=== PATIENT | female | born 1965 | race Caucasian/White ===

== ENCOUNTER 2016-08-13 08:08 | Day surgery (SDC) | payer OTHER ==
[2016-08-13] VITALS (9 sets, daily range): BP systolic 95–131; BP diastolic 58–74; PULSE 66–82; RESP 12–16; TEMP 97–97.9; O2SAT 97–100; Ht 161.3 cm; Wt 92.3 kg
[~2016-08-13] VITALS: Ht 161.3 cm; Wt 92.3 kg
[~2016-08-13 08:08] MED LIST: ASPI1TAB7 PO; CALC-191 PO; FERR-67 PO; IBUP-1547 PO; LIDOCAINE 1% (10mg/ml) 2ml SDV INJ ONE; LR 1,000 ML IV SCH; NAPR220T PO; RIZA10TA24 PO; TRAM50TA4 PO; VENL-68 PO
--- OUTSIDE RECORDS SUMMARY | 2016-08-13 08:12 | XMS REPORT | Continuity of Care Document ---
Author Author [facility] Organization [facility] Address Unknown Phone Unavailable Allergies Medications Problems Procedures Results Encounters ACCT No. Visit Date/Time Discharge Status Pt. Type Provider Facility Loc./Unit Complaint [id number] 07/06/2013 15:18:00 07/06/2013 23 :59:59 CLS Outpatient [id number] 05/22/2013 13:48:00 05/22/2013 23 :59:59 CLS Outpatient
--- OUTSIDE RECORDS SUMMARY | 2016-08-13 08:12 | XMS REPORT | Continuity of Care Document ---
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 Phone Katia Glass PP Unavailable Payers Payer name Insurance type Covered republican ID Authorization(s) Unknown Problems Condition Effective Dates (start - stop) Clinical Status Headache - *Chronic Menopausal or female climacteric states - *Chronic Irregular menses - *Chronic Epistaxis - *Acute Encounter for routine gynecological examination - *Routine Obesity - *Chronic Right foot pain - *Acute Migraine - *Chronic Headache - *Acute Right ankle pain - *Acute 311 - DEPRESSIVE DISORDER NEC - MIGRNE UNSP WO NTRC MGRN - ESOPHAGEAL REFLUX - Pain of left calf - *Acute Family History Family Member Diagnosis Age At Onset Status Mother (Alive) Cancer - lung Yes Mother (Unknown) Cancer - breast Yes Maternal grandmother (Unknown) Cancer - breast Yes Maternal grandfather (Unknown) Heart disease Yes Mother (Alive) Cancer - ovarian Yes Maternal grandmother (Unknown) Alzheimer's Disease Yes Social History Social History Element Description Quantity alcohol Allergies, Adverse Reactions, Alerts Substance Reaction Severity Status Unknown Medications Medication Instructions Dosage Effective Dates (start - stop) Status Toprol XL 25 mg tablet,extended release take 1 tablet (25MG) by oral route every morning 25 MG - Active Claritin 10 mg tablet take 1 tablet (10MG) by oral route every day 10 MG - Active ibuprofen 800 mg tablet take 1 tablet (800MG) by oral route 3 times every day with food 800 MG - Active Imitrex 50 mg tablet 1 PO PRN , AUGUST REPEAT IN 2HR PRN - Active gabapentin 100 mg capsule Take 1 capsule by mouth at onset of headache. - Active Effexor XR 37.5 mg capsule,extended release TAKE 1 PO Q HS - Active Fioricet 50 mg-325 mg-40 mg tablet take 1 tablet by oral route daily at onset of Headache - Active Ultram 50 mg tablet take 1 tablet (50MG) by oral route every 6 - 8 hours as needed 50 MG - Active Immunizations Vaccine Date Status Comments Unknown Results Test Name Date and Time Measure Units Reference Range Abnormal Flag Comments Unknown Vital Signs Date / Time: Height Weight Pulse Rate Blood Pressure Temperature /13:52:00 63.00 in 191.80 lbs 76 /min 128/88 mm[Hg] Procedures Procedure Date Unknown Encounters Encounter Location Date Patient Visit [address] Patient Visit [address] Patient Visit [address] Patient Visit [address] Patient Visit [address] Patient Visit [address] Patient Visit [address] Patient Visit [address] Patient Visit [address] Patient Visit Conversion Patient Visit [address] Advance Directives Directive Effective Date Unknown
--- OUTSIDE RECORDS SUMMARY | 2016-08-13 08:12 | XMS REPORT | Continuity of Care Document ---
Author Author [facility] Organization [facility] Address Unknown Phone Unavailable Support Name Relationship Address Phone HAKAN HARTLEY MD Caregiver [address] [place] [address] [place] [address] Unavailable JAMEL HARRELL APRN Caregiver [address] [place] [address] Unavailable KATHY QURESHI Next Of Kin [address] [place] [address] Insurance Providers Guarantor Juan Flores Address [address] [place] [address] Email [email or web address] Payer [employer] Policy Number [id number] Subscriber's Name Juan Flores Relationship 18 Self Group Number [id number] Advance Directives Directive Response Recorded Date/Time Ordered Resuscitation Status Full Code 11/06/15 2:33pm DPOA for Healthcare Only No 11/07/15 6:31am Problems No problem information available. Medications Current Home Medications Medication Dose Units Route Directions Days Qty Instructions Start Date Aspirin/Acetaminophen/Caffeine (Excedrin Migraine Caplet) 1 Each Tablet 2-4 Tab Oral Every 8 Hours as needed for Pain 11/07/15 Calcium Carbonate/Vitamin D3 (Calcium + Vitamin D Tablet) 1 Each Tablet 1 Tab Oral Daily 11/06/15 Ferrous Sulfate (Iron Supplement) 325 Mg Tablet 1 Tab Oral Daily 30 Tablet 11/06/15 Ibuprofen 800 Mg Tablet 1 Tab Oral Every 6 Hours as needed for Pain 11/06/15 Losartan Potassium 50 Mg Tablet 50 Mg Oral Daily 11/06/15 Naproxen Sodium (Naproxen 220MG) 220 Mg Tablet 220 Mg Oral As Needed 11/06/15 Rizatriptan Benzoate (Maxalt) 10 Mg Tablet 1 Tab Oral As Needed 9 Tablet 11/06/15 Sumatriptan Succinate (Imitrex) 50 Mg Tablet 1 Tab Oral As Needed 9 Tablet 11/06/15 Venlafaxine Hcl (Venlafaxine Hcl Er) 75 Mg Cap.er.24h 75 Mg Oral Daily 11/06/15 Social History Social History Problem Response Recorded Date/Time Onset Date Status Chewing Tobacco Status No 11/07/2015 6:21am Not Applicable Not Applicable Hx Substance Use No 11/07/2015 6:21am Not Applicable Not Applicable Hx Alcohol Use Y SOCIALLY 11/07/2015 6:21am Not Applicable Not Applicable Has the pt used tobacco in the last 12 months No 11/07/2015 6:21am Not Applicable Not Applicable Query Response Start Date Stop Date Smoking Status Former smoker Hospital Discharge Instructions No hospital discharge instructions. Plan of Care Discharge Date 11/07/15 8:51am Prescriptions See Medication Section Functional Status Query Response Date Recorded Ability to complete ADL's impeded by No change November 07, 2015 6:31am Allergies, Adverse Reactions, Alerts Allergen Type Severity Reaction Status Last Updated Lisinopril Allergy Mild COUGH Active 11/06/15 Immunizations Query Response on File Recorded Date/Time Hx Influenza Vaccination Y JAN 2015 11/07/15 6:21am Hx Pneumococcal Vaccination No 11/07/15 6:21am Hx Influenza Vaccination Y JAN 2015 11/07/15 6:21am Vital Signs Acute Vital Signs Vital Response Date/Time Temperature (Fahrenheit) 97.5 deg F (96.8 - 99.1) 11/07/2015 8:07am Temperature (Calculated Celsius) 36.19373 degrees C (36.0 - 37.3) 11/07/2015 8:07am Temperature Source Temporal 11/07/2015 8:07am Pulse Rate (adult) 78 bpm (60 - 100) 11/07/2015 8:40am Respiratory Rate 17 breaths/min (10 - 20) 11/07/2015 8:40am O2 Sat by Pulse Oximetry 98 % (90 - 100) 11/07/2015 8:40am Oxygen Delivery Method Room Air 11/07/2015 8:40am Blood Pressure 105/61 mm Hg 11/07/2015 8:40am Blood Pressure Source Automatic Cuff 11/07/2015 8:40am Height (Feet) 5 feet 11/07/2015 6:12am Height (Inches) 4.00 inches 11/07/2015 6:12am Weight (Kilograms) 89.400 kg 11/07/2015 6:12am Body Mass Index (BMI) 33.8 11/07/2015 6:12am Results No known relevant diagnostic tests, laboratory data and/or discharge summary. Procedures Procedure Status Date Provider(s) Colonoscopy Completed 11/07/15 HAKAN HARTLEY MD Encounters Encounter Location Arrival/Admit Date Discharge/Depart Date Attending Provider Departed [facility] 11/07/15 5:56am 11/07/15 8: 51am HAKAN HARTLEY MD
--- OUTSIDE RECORDS SUMMARY | 2016-08-13 08:12 | XMS REPORT | Continuity of Care Document ---
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 Phone Maria LuisaKatia PP Unavailable Payers Payer name Insurance type Covered constitution party ID Authorization(s) Unknown Problems Condition Effective Dates (start - stop) Clinical Status Gastrocnemius muscle strain - *Acute Right foot pain - *Acute Headache - *Chronic Menopausal or female climacteric states - *Chronic Irregular menses - *Chronic Epistaxis - *Acute Encounter for routine gynecological examination - *Routine Obesity - *Chronic Right ankle pain - *Acute 311 - DEPRESSIVE DISORDER NEC - MIGRNE UNSP WO NTRC MGRN - ESOPHAGEAL REFLUX - Migraine - *Chronic Headache - *Acute Pain of left calf - *Acute Family [...] Dosage Effective Dates (start - stop) Status naproxen 375 mg tablet take 1 tablet (375MG) by oral route 2 times every day with food 375 MG - Active [place] 5 mg-325 mg tablet take 1 tablet by oral route every 6 hours as needed for pain 0 - Active Claritin 10 mg tablet take 1 tablet (10MG) by oral route every day 10 MG - Active Imitrex 50 mg tablet 1 PO PRN , AUGUST REPEAT IN 2HR PRN - Active Effexor XR 37.5 mg capsule,extended release TAKE 1 PO Q HS - Active Ultram 50 mg tablet take 1 tablet (50MG) by oral route every 6 - 8 hours as needed 50 MG - Active Fioricet 50 mg-325 mg-40 mg tablet take 1 tablet by oral route daily at onset of Headache - Active Toprol XL 25 mg tablet,extended release take 1 tablet (25MG) by oral route every morning 25 MG - Active Immunizations Vaccine Date Status Comments Unknown Results Test Name Date and Time Measure Units Reference Range Abnormal Flag Comments Unknown Vital Signs Date / Time: Height Weight Pulse Rate Blood Pressure Temperature /15:23:00 63.00 in 190.60 lbs 130/90 mm[Hg] Procedures Procedure Date Unknown Encounters Encounter Location Date Patient Visit [address] Patient Visit [address] Patient Visit [address] Patient Visit [address] Patient [address] Patient [address] Patient [address] Patient Visit [address] Patient Visit [address] Patient Visit Conversion Patient Visit [address] Patient Visit [address] Advance Directives Directive Effective Date Unknown
[2016-08-13] MEDS ORDERED: OMEP40CA52 PO (08:50)
--- NOTE | 2016-08-13 09:18 | ANESPREOP ---
Anesthesia Record Date and Time DATE: 08/13/16 TIME: 09:16 Proposed Surgical Procedure EGD NPO since: 729 solid Allergies: Coded Allergies: lisinopril (Verified Allergy, Mild, COUGH, 08/13/16) Ht/Wt/BMI Height: 5 ' 3.50 " Weight: 92.300 kg BMI: 35.5 kg/m2 Vital Signs Date Time Temp Pulse Resp B/P Pulse Ox O2 Delivery O2 Flow Rate FiO2 08/13/16 08:28 97.9 80 15 131/74 99 Room Air Medications Inpatient Medications Current Medications Medications (Trade) Dose Ordered Sig/Juan Start Time Stop Time Status Last Admin Dose Admin Lactated Ringer's (Lactated Ringers) 1,000 ml @ 50 mls/hr Q20H 08/13/16 07:00 08/13/16 09:08 50 MLS/HR Aspirin/Acetaminophen/Caffeine (Excedrin Migraine Caplet) 1 Each Tablet, 2-4 TAB PO Q8H PRN for PAIN, (Reported) Last Taken: on 08/12/16 1500 Calcium Carbonate/Vitamin D3 (Calcium + Vitamin D Tablet) 1 Each Tablet, 1 TAB PO DAILY, (Reported) Last Taken: on 08/06/16 0700 Ferrous Sulfate (Iron Supplement) 325 Mg Tablet , 1 TAB PO DAILY, (Reported) Last Taken: on 08/12/16 0730 Ibuprofen (Ibuprofen) 800 Mg Tablet, 1 TAB PO Q6H PRN for PAIN, (Reported) Last Taken: on Unknown Date & Time Naproxen Sodium (Naproxen 220mg) 220 Mg Tablet, 220 MG PO PRN, (Reported) Last Taken: on Unknown Date & Time Omeprazole (Omeprazole) 40 Mg Capsule.dr , 1 CAP PO ACB, (Reported) Last Taken: on 08/13/16 0730 Rizatriptan Benzoate (Maxalt) 10 Mg Tablet, 1 TAB PO PRN, (Reported) Last Taken: on 08/12/16 1500 Tramadol HCl (Tramadol HCl) 50 Mg Tablet, 50 MG PO Q6HR, (Reported) Take 1 tablet, by mouth, every 6 hours. Last Taken: on 08/12/162099 Venlafaxine HCl (Venlafaxine HCl ER) 75 Mg Cap.er.24h, 75 MG PO DAILY, (Reported) Last Taken: on 08/12/16 1900 Currently on Beta Xochitl: No Medical/Surgical History Anesthesia PMH: Reports: *Hypertension, Obesity, Reflux (controlled) Smoking Status: Former smoker (quit age 18) Use Chewing Tobacco?: No Second Hand Exposure: No Substance Use Type: does not use Alcohol Intake: none HX of Last Menstrual Period: 2015 Past Surgical History Orthopedic Surgeries: Yes - LEFT AND RIGHT WRIST FXs Abdominal Surgeries: Genitourinary Surgeries: Yes - KIDNEY STONE REMOVED Cardiac Surgeries: Endocrine Surgeries: Reproductive Surgeries: Yes - D & C; LAP TUBAL Neurological Surgeries: Ear Surgeries: Nose Surgeries: Throat Surgeries: Other Surgeries: Yes - KIDNEY STONE REMOVED Anesthesia Adverse Reactions: FOUND none Family Hx of Anesthesia Advers: none Hx of Motion Sickness: No Pertinent Findings Test 08/13/16 08:25 Urine Test Negative (NEGATIVE) Physical Exam Respiratory: Bilat breath sounds equal, Lungs clear Cardiovascular: FOUND Regular rate, rhythm Airway Assessment Mallampati Score: III TMD: 2 Fingerbreadths Neck Extension: Fair Overall Assessment: May Be Diff Intubation (small mouth opening, mp 3, short tmd <3 fb) ASA: 2 Plan Anesthesia Plan: TIVA, GETA Discussion Discussed risks/options/alternatives of anesthesia and questions answered. Patient consents. Nursing pain assessment noted. Present: Family Member Attestation Statement Prior to the delivery of any anesthetic medication, I examined the patient, developed the plan, obtained the patient's consent and discussed the risk and benefits of the procedure with the patient/guardian. NEGRITO DALEY CRNA Aug 13, 2016 09:18
[2016-08-13] MEDS ORDERED: PROPOFOL 500mg 50 ML IV ONE (09:35)
[2016-08-13] MEDS ORDERED: LIDOCAINE VISCOUS 2% Oral Soln 15ml UD ONE (10:01)
[2016-08-13] MEDS ORDERED: BENZOCAINE 20% Top. Anesth. SPRAY UD ONE (10:05)
--- NOTE | 2016-08-13 10:34 | GSPOSTPROC ---
Immediate Operative Note DATE: 08/13/16 TIME: 10:33 Postop Diagnosis: Gastric ulcers Surgical Procedure: EGD w/Biopsies Surgeon: Benson ASA: 2 HAKAN HARTLEY MD Aug 13, 2016 10:33
--- NOTE | 2016-08-13 12:15 | ANESPO ---
Post-Op Note Date 08/13/16 Time: 12:15 Status Pt Participated in Evaluation: Pt participated in person Vital Signs Date Time Temp Pulse Resp B/P Pulse Ox O2 Delivery O2 Flow Rate FiO2 08/13/16 11:25 72 16 115/58 97 Room Air 08/13/16 10:33 97.0 3.00 Respiratory Function: Airway patent, Regular respirations Cardiovascular Function: Regular pulse Mental Status: Alert/oriented Pain Level Intensity: 0 Hydration: Taking po fluids Complications during Recovery None apparent Follow-Up Instructions Instructions Per Surgeon MAYTE PANCHAL CRNA Aug 13, 2016 12:15
--- NOTE | 2016-08-13 19:46 | OPNOTEF ---
DATE OF OPERATION 08/13/2016 PREOPERATIVE DIAGNOSES 1. Iron deficiency anemia. 2. Gastroesophageal reflux disease. 3. Epigastric abdominal pain. POSTOPERATIVE DIAGNOSES 1. Iron deficiency anemia. 2. Gastroesophageal reflux disease. 3. Epigastric abdominal pain. 4. Large hiatal hernia. 5. Two antral gastric ulcers. 6. Bleeding gastric erosions. OPERATION Esophagogastroduodenoscopy with biopsies. SURGEON Darnell Knowles MD ANESTHESIA TIVA ASA CLASS 2. FINDINGS The esophagus appeared completely normal. There was no distal esophagitis. There were no esophageal erosions or ulcers. Mucosa appeared normal throughout the esophagus. There were no Givens's esophagus changes present at the esophagus. The duodenal mucosa also appeared completely normal. There was no duodenitis. There were no duodenal ulcers or erosions. The patient does have a large hiatal hernia. The patient does have two medium-size ulcers at the gastric antrum. These were at the prepyloric area at the gastric antrum. There was white fibrinous exudate present at the base of each of these two ulcers. The patient also has multiple gastric erosions. Some of these are linear gastric erosions. There was some erythema around some of these erosions. There was some bright red blood present at some of the erosions as they were first visualized today as the upper GI endoscope was being introduced into the stomach. The gastric ulcers and gastric erosions were thought to be the source for upper gastrointestinal tract blood loss which was leading to iron deficiency anemia for this patient. There were no Tony's ulcers associated with the large hiatal hernia. DESCRIPTION OF OPERATION The patient was brought to the endoscopy room. The patient was placed on a cart in the endoscopy room. Topical anesthesia was achieved at the oropharynx in the usual manner. The patient was placed in the left lateral recumbent position on the cart. The patient was premedicated with intravenous sedation medication administered by the nurse staff rn. The Olympus upper GI endoscope was used. The upper GI endoscope was introduced into the esophagus. The upper GI endoscope was advanced down through the esophagus and into the stomach. The stomach was examined. The upper GI endoscope was retroflexed, and the gastroesophageal junction was viewed from below. The upper GI endoscope was straightened out. The stomach was examined further. The upper GI endoscope was advanced through the pylorus into the duodenum. Duodenum was examined. The upper GI endoscope was then withdrawn from the duodenum back into the stomach. The endoscopic biopsy forceps was used to obtain a sample of prepyloric antral gastric mucosa which was submitted for CLOtest studies. The endoscopic biopsy forceps was used to obtain biopsies of each of the two gastric ulcers. These biopsy specimens were all submitted together in one container and submitted for study by the pathologist. The upper GI endoscope was then withdrawn out through the stomach and esophagus and removed from the patient. Findings throughout the procedure were as described above. The patient did continue to receive intravenous sedation medication administered by the nurse staff rn throughout the operation. The patient did appear to tolerate the operation well. NGA
== END 2016-08-13 12:30 | disposition home or self-care (01) ==
LOC: SCU 08:08
PROVIDERS: ATTEND Surgery
DX: K25.4 Chronic or unspecified gastric ulcer with hemorrhage (principal); K29.61 Other gastritis with bleeding; K44.9 Diaphragmatic hernia without obstruction or gangrene; K21.9 Gastro-esophageal reflux disease without esophagitis; D50.9 Iron deficiency anemia, unspecified; K59.09 Other constipation; G43.909 Migraine, unspecified, not intractable, without status migrainosus; I10 Essential (primary) hypertension; Z79.1 Long term (current) use of non-steroidal anti-inflammatories (NSAID); Z79.899 Other long term (current) drug therapy
CPT/HCPCS: 43239; 81025; 87081; J7120